=== PATIENT | female | born 1965 | race Caucasian/White ===

== ENCOUNTER 2019-06-20 20:24 | Inpatient (IN) | payer MEDICAID, OTHER ==
[~2019-06-20] VITALS: Ht 170.2 cm; Wt 74.8 kg
[2019-06-20] MEDS ORDERED: PIPERACILLIN SODIUM/TAZOBACTAM 4.5 G in IV DEXTROSE 5% 50 ML IV ONE (21:15)
[2019-06-20] MEDS ORDERED: ACETAMINOPHEN ES 500 MG TABLET PO ONE (21:15)
[2019-06-20] MEDS ORDERED: ONDANSETRON 4 MG/2 ML VIAL IV ONE (21:15)
[2019-06-20] MEDS ORDERED: IV NORMAL SALINE 1000 ML BAG IV ONE (21:15)
[2019-06-20] MEDS ORDERED: MORPHINE SULFATE 2 MG/1 ML DISP.SYRIN IV ONE (21:15)
[2019-06-20] MEDS ORDERED: SWABABLE VALVE TRANSFER SET EA MC ONE (21:20)
[2019-06-20] MEDS ORDERED: ONDANSETRON 4 MG/2 ML VIAL ONE (21:21)
[2019-06-20] MEDS ORDERED: IV NORMAL SALINE 250 ML IV ONE (21:21)
[2019-06-20] MEDS ORDERED: IOHEXOL 300MG/ML 100 ML INFUS..BTL ONE (21:21)
[2019-06-20] MEDS ORDERED: MORPHINE SULFATE 4 MG/1 ML DISP.SYRIN ONE (21:21)
[2019-06-20 21:22] LABS: BASOPHILS # (AUTO) 0.1 K/uL (0.0-8.0); BASOPHILS % (AUTO) 0.9 % (0.0-2.0); EOSINOPHILS # (AUTO) 0.1 K/uL (0.0-0.7); EOSINOPHILS % (AUTO) 0.9 % (0.0-7.0); HEMATOCRIT 42.2 % (31.2-41.9); HEMOGLOBIN 14.1 g/dL (10.9-14.3); LYMPHOCYTES # (AUTO) 2.4 K/uL (20.0-40.0); LYMPHOCYTES % (AUTO) 24.3 % (20.5-51.5); MEAN CORPUSCULAR HEMOGLOBIN 28.6 uug (24.7-32.8); MEAN CORPUSCULAR HGB CONC 33 g/dL (32.3-35.6); MEAN CORPUSCULAR VOLUME 85.7 fL (75.5-95.3); MONOCYTES # (AUTO) 1.1 K/uL (2.0-10.0); MONOCYTES % (AUTO) 11.3 % (0.0-11.0); NEUTROPHILS # (AUTO) 6.1 K/uL (1.8-8.9); NEUTROPHILS % (AUTO) 62.6 % (38.5-71.5); PLATELET COUNT (AUTO) 365 K/uL (179-408); RED BLOOD CELL COUNT(AUTO) 4.92 MIL/uL (3.63-4.92); WHITE BLOOD COUNT (AUTO) 9.7 K/uL (3.8-11.8)
[2019-06-20] MEDS ORDERED: PIPERACILLIN/TAZOBACTAM/D5W 50 ML IV ONE (21:22)
--- NOTE | 2019-06-20 21:30 | NUR ---
TRANSPORTED TO CT [facility] BY LYLY FOLEY VIA [facility]
[2019-06-20 21:41] LABS: CREATININE 0.7 mg/dL (0.6-1.3); POTASSIUM 3.6 mmol/L (3.5-5.1)
[2019-06-20 21:47] LABS: BILIRUBIN,DIRECT 0.2 mg/dL (0.0-0.2); BILIRUBIN,TOTAL 0.7 mg/dL (0.2-1.0); TOTAL PROTEIN, SERUM 7.8 g/dL (6.4-8.2)
--- NOTE | 2019-06-20 22:00 | NUR ---
PT BACK FR CT NAD CURRENTLY REPORTS DECREASE IN PAIN RESTARTED IV FLUIDS STARTED ON IV ABX PIGGYBACK ABLE TO TOLERATE
--- NOTE | 2019-06-20 22:58 | NUR ---
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
--- NOTE | 2019-06-20 23:02 | NUR ---
DR ROBERTSON CALLED BACK DR RAZA CALLED BACK
[2019-06-20] MEDS ORDERED: ACETAMINOPHEN 325 MG TABLET PO PRN (23:15)
[2019-06-20] MEDS ORDERED: MAGNESIUM HYDROXIDE 30 ML LIQUID UDC PO PRN (23:15)
[2019-06-20] MEDS ORDERED: HYDROCODONE/APAP 5-325MG TABLET PO PRN (23:15)
[2019-06-20] MEDS ORDERED: ONDANSETRON 4 MG/2 ML VIAL IV PRN (23:15)
[2019-06-20] MEDS ORDERED: Z GUARD REMEDY PASTE 57 GM TUBE TOP PRN (23:15)
--- NOTE | 2019-06-20 23:20 | NUR ---
ANGEL OWENS CALLED BACK AND RECEIVED HAND OFF AND SBAR
--- NOTE | 2019-06-20 23:50 | NUR ---
TRANSPORTED VIA [facility] BY CLERK RATING (CHARGE)
[2019-06-21 00:30] VITALS: BP 137/77
--- NOTE | 2019-06-21 00:30 | NUR ---
pt arrived in stable condition, sleepy but able to answer questions. Denies pain at this point. skin is intact, belongings charted. Admitting MD notified for admitting orders. Pt resting comfortably
[2019-06-21] MEDS ORDERED: VANCOMYCIN IV 200 ML ONE (02:02)
[2019-06-21] MEDS ORDERED: PIPERACILLIN/TAZOBACTAM/D5W 50 ML IV ONE (02:02)
[2019-06-21] MEDS ORDERED: PIPERACILLIN SODIUM/TAZOBACTAM 3.375 G in IV DEXTROSE 5% 50 ML IV SCH ×3 (06:00)
[2019-06-21 06:26] LABS: BASOPHILS # (AUTO) 0.1 K/uL (0.0-8.0); BASOPHILS % (AUTO) 0.6 % (0.0-2.0); EOSINOPHILS # (AUTO) 0.2 K/uL (0.0-0.7); EOSINOPHILS % (AUTO) 1.7 % (0.0-7.0); HEMATOCRIT 42.9 % (31.2-41.9); HEMOGLOBIN 14.3 g/dL (10.9-14.3); LYMPHOCYTES # (AUTO) 2.7 K/uL (20.0-40.0); LYMPHOCYTES % (AUTO) 30.3 % (20.5-51.5); MEAN CORPUSCULAR HEMOGLOBIN 28.4 uug (24.7-32.8); MEAN CORPUSCULAR HGB CONC 33 g/dL (32.3-35.6); MONOCYTES % (AUTO) 11.9 % (0.0-11.0); NEUTROPHILS # (AUTO) 4.8 K/uL (1.8-8.9); NEUTROPHILS % (AUTO) 55.5 % (38.5-71.5); PLATELET COUNT (AUTO) 381 K/uL (179-408); RED BLOOD CELL COUNT(AUTO) 5.05 MIL/uL (3.63-4.92); WHITE BLOOD COUNT (AUTO) 8.7 K/uL (3.8-11.8)
[2019-06-21] MEDS: IV D5 1/2 NS 1000 ML 1,000 ML IV PRN ×2 (06:33→22:43)
[2019-06-21 06:45] LABS: CREATININE 0.8 mg/dL (0.6-1.3); MAGNESIUM 2.1 mg/dL (1.8-2.4); PHOSPHOROUS 3.7 mg/dL (2.5-4.9)
[2019-06-21 06:53] LABS: THYROID STIMULATING HORMONE 0.526 mIU/mL (0.358-3.740)
[2019-06-21] MEDS: MORPHINE SULFATE 2 MG/1 ML DISP.SYRIN IV PRN ×4 (07:06→21:02)
--- NOTE | 2019-06-21 07:30 | NUR ---
RECEIVED PATIENT IN BED, ASLEEP, EASY TO AWAKE. LEFT AC IV INTACT AND FLUSHED. PATIENT DENIES PAIN AT THIS TIME. LEFT LOWER JAW SWELLING. NPO NOW. SWALLOW EVAL TO BE DONE. SAFETY AND FALL PREVENTION IN PLACE. CALL LIGHT IN REACH. BED IN LOW AND LOCKED POSITION. WILL CONTINUE TO MONITOR.
[2019-06-21] MEDS ORDERED: VANCOMYCIN IV 1,000 MG in IV DEXTROSE 5% 250 ML IV SCH ×3 (07:45)
[2019-06-21] MEDS: PANTOPRAZOLE SODIUM 40 MG VIAL IV SCH (08:17)
[2019-06-21 12:24] VITALS: BP 101/57
--- NOTE | 2019-06-21 13:19 | NUR ---
CLINICAL PHARMACY NOTE:VANCOMYCIN PHARMACY TO DOSE Subjective: To start vancomycin in this 53 y/o female for indication of "suspected infection" Objective: weight 74kg height 170cm BUN/Scr 7/0.8 wbc 8.7 temp 97.9 1gm given in ER 06/21 @~0300 Assessment/Plan Will start regimen of vanco 1250mg q13hr for estimated trough of 16.57, first dose today at 1400. Will check trough before 4th scheduled dose (not ordered yet). Will follow renal function and adjust if needed as well. Will continue to monitor
[2019-06-21] MEDS: VANCOMYCIN IV 1,250 MG in IV DEXTROSE 5% 250 ML IV SCH (13:36)
[2019-06-21] MEDS: PIPERACILLIN/TAZOBACTAM/D5W 3.375 G in IV DEXTROSE 5% 50 ML IV SCH ×2 (14:09→21:02)
[2019-06-21 15:28] VITALS: BP 116/71
--- NOTE | 2019-06-21 19:20 | NUR ---
PATIENT IN BED,AOX4. LEFT AC AND RIGHT FA IV INTACT AND FLUSHED. PAIN MEDICATIONS GIVEN ORDERED. LEFT LOWER JAW SWELLING. PATIENT TOLERATING ORAL FOOD. SAFETY AND FALL PREVENTION IN PLACE. CALL LIGHT IN REACH. BED IN LOW AND LOCKED POSITION.
[2019-06-21 20:11] VITALS: BP 109/65
[2019-06-21] MEDS: NICOTINE 21 MG/24HR PATCH TD SCH (20:27)
[2019-06-22 00:11] VITALS: BP 94/39
[2019-06-22 01:00] VITALS: BP 116/71
[2019-06-22] MEDS: MORPHINE SULFATE 2 MG/1 ML DISP.SYRIN IV PRN ×5 (01:00→21:08)
[2019-06-22] MEDS: VANCOMYCIN IV 1,250 MG in IV DEXTROSE 5% 250 ML IV SCH ×2 (02:21→16:21)
[2019-06-22 04:00] VITALS: BP 121/58
[2019-06-22] MEDS: PIPERACILLIN/TAZOBACTAM/D5W 3.375 G in IV DEXTROSE 5% 50 ML IV SCH ×3 (05:21→22:18)
[2019-06-22 06:20] LABS: BASOPHILS % (AUTO) 0.9 % (0.0-2.0); EOSINOPHILS # (AUTO) 0.1 K/uL (0.0-0.7); EOSINOPHILS % (AUTO) 2.9 % (0.0-7.0); HEMATOCRIT 35.5 % (31.2-41.9); HEMOGLOBIN 11.6 g/dL (10.9-14.3); LYMPHOCYTES # (AUTO) 1.7 K/uL (20.0-40.0); LYMPHOCYTES % (AUTO) 34.3 % (20.5-51.5); MEAN CORPUSCULAR HEMOGLOBIN 28.8 uug (24.7-32.8); MEAN CORPUSCULAR HGB CONC 33 g/dL (32.3-35.6); MEAN CORPUSCULAR VOLUME 88.6 fL (75.5-95.3); MONOCYTES # (AUTO) 0.6 K/uL (2.0-10.0); MONOCYTES % (AUTO) 11.9 % (0.0-11.0); NEUTROPHILS # (AUTO) 2.4 K/uL (1.8-8.9); PLATELET COUNT (AUTO) 283 K/uL (179-408); RED BLOOD CELL COUNT(AUTO) 4.01 MIL/uL (3.63-4.92); WHITE BLOOD COUNT (AUTO) 4.8 K/uL (3.8-11.8)
[2019-06-22 06:42] LABS: CREATININE 0.8 mg/dL (0.6-1.3); MAGNESIUM 1.8 mg/dL (1.8-2.4); PHOSPHOROUS 3.1 mg/dL (2.5-4.9); POTASSIUM 3.3 mmol/L (3.5-5.1)
--- NOTE | 2019-06-22 07:24 | NUR ---
patient rested well in between care; tolerated antibiotics; c/o pain medicated accdgly see Emar; BMP sugar 500+ and K 3.3; Dr Porras made aware and with new orders; endorsed to Nurse Beckford for further management.
[2019-06-22] MEDS ORDERED: DEXTROSE 50% 50 ML DISP.SYRIN IV PRN (07:30)
[2019-06-22] MEDS ORDERED: INSULIN REGULAR, HUMAN 300 UNITS/3 ML VIAL SQ PRN (07:30)
[2019-06-22] MEDS ORDERED: INSULIN REGULAR, HUMAN 300 UNIT/3 ML VIAL SQ PRN (07:30)
--- NOTE | 2019-06-22 07:39 | NUR ---
RECEIVED PATIENT IN BED,AOX4. LEFT AC AND RIGHT FA IV INTACT AND FLUSHED. IV FLUIDS STOPED ORDERED. ACCU CHECK DONE WITH BS OF 94. LEFT LOWER JAW SWELLING. PATIENT DENIES PAIN AT THIS TIME. SAFETY AND FALL PREVENTION IN PLACE. CALL LIGHT IN REACH. BED IN LOW AND LOCKED POSITION. WILL CONTINUE TO MONITOR.
[2019-06-22] MEDS: BLOOD SUGAR DIAGNOSTIC 1 EACH STRIP VI SCH ×4 (07:45→21:19)
[2019-06-22] MEDS ORDERED: POTASSIUM CHLORIDE 20 MEQ TAB.PRT.SR PO ONE (08:00)
[2019-06-22] MEDS: PANTOPRAZOLE SODIUM 40 MG VIAL IV SCH (08:04)
[2019-06-22 11:30] VITALS: BP 105/44
[2019-06-22 16:00] VITALS: BP 122/59
--- NOTE | 2019-06-22 18:19 | NUR ---
PATIENT IN BED,AOX4. LEFT AC AND RIGHT FA IV INTACT AND FLUSHED. IV ABX GIVEN ORDERED. LEFT LOWER JAW SWELLING. PATIENT CONTINUES WITH PAIN MANAGEMENT THROUGHOUT THE SHIFT ORDERED. SAFETY AND FALL PREVENTION IN PLACE. CALL LIGHT IN REACH. BED IN LOW AND LOCKED POSITION. WILL REPORT TO ONCOMING NURSE.
[2019-06-22 20:00] VITALS: BP 113/62
--- NOTE | 2019-06-22 20:00 | NUR ---
Patient received into care laying in bed resting comfortably and easy to rouse when name spoken. Patient is complaining of jaw pain and is requesting her nicotine patch. All safety and fall precaution measures are in place. Call light and personal items are within reach. Will continue to monitor and assess.
[2019-06-22] MEDS: NICOTINE 21 MG/24HR PATCH TD SCH (20:04)
[2019-06-23] VITALS: BP 120/66
[2019-06-23 04:00] VITALS: BP 116/55
[2019-06-23 05:11] LABS: BASOPHILS # (AUTO) 0.1 K/uL (0.0-8.0); BASOPHILS % (AUTO) 0.7 % (0.0-2.0); EOSINOPHILS # (AUTO) 0.2 K/uL (0.0-0.7); EOSINOPHILS % (AUTO) 2.5 % (0.0-7.0); HEMATOCRIT 41.7 % (31.2-41.9); HEMOGLOBIN 13.9 g/dL (10.9-14.3); LYMPHOCYTES # (AUTO) 1.7 K/uL (20.0-40.0); LYMPHOCYTES % (AUTO) 20.5 % (20.5-51.5); MEAN CORPUSCULAR HEMOGLOBIN 28.6 uug (24.7-32.8); MEAN CORPUSCULAR HGB CONC 34 g/dL (32.3-35.6); MEAN CORPUSCULAR VOLUME 85.5 fL (75.5-95.3); MONOCYTES # (AUTO) 0.9 K/uL (2.0-10.0); MONOCYTES % (AUTO) 10.6 % (0.0-11.0); NEUTROPHILS # (AUTO) 5.3 K/uL (1.8-8.9); NEUTROPHILS % (AUTO) 65.7 % (38.5-71.5); PLATELET COUNT (AUTO) 390 K/uL (179-408); RED BLOOD CELL COUNT(AUTO) 4.88 MIL/uL (3.63-4.92); WHITE BLOOD COUNT (AUTO) 8.1 K/uL (3.8-11.8)
[2019-06-23 05:22] LABS: CREATININE 0.8 mg/dL (0.6-1.3); MAGNESIUM 2.1 mg/dL (1.8-2.4); PHOSPHOROUS 3.7 mg/dL (2.5-4.9); POTASSIUM 3.8 mmol/L (3.5-5.1)
[2019-06-23] MEDS: VANCOMYCIN IV 1,250 MG in IV DEXTROSE 5% 250 ML IV SCH (06:07)
[2019-06-23] MEDS: MORPHINE SULFATE 2 MG/1 ML DISP.SYRIN IV PRN ×2 (06:34→11:22)
[2019-06-23] MEDS: BLOOD SUGAR DIAGNOSTIC 1 EACH STRIP VI SCH ×2 (06:41→11:26)
[2019-06-23] MEDS ORDERED: PANTOPRAZOLE SODIUM 40 MG TABLET.DR PO SCH (07:00)
[2019-06-23] MEDS: PIPERACILLIN/TAZOBACTAM/D5W 3.375 G in IV DEXTROSE 5% 50 ML IV SCH (08:52)
--- NOTE | 2019-06-23 10:16 | NUR ---
CLINICAL PHARMACY NOTE:VANCOMYCIN PHARMACY TO DOSE Subjective: To continue vancomycin in this 53 y/o female for indication of "suspected infection ". Per ID note for Facial cellulitis Objective: weight 74kg height 170cm BUN/Scr 9/0.8 wbc 8.1 temp 97.1 Vanco trough level on 06/23 at 0430: 13.3 Assessment/Plan Since vanco trough level is 13.3, will change dose to vanco 1250mg q12hr for estimated trough of 15mcg/ml. 2nd dose today at 1800. Will check trough before 4th scheduled dose (not ordered yet). Will follow renal function and adjust if needed as well. Will continue to monitor
[2019-06-23 11:54] VITALS: BP 122/66
[2019-06-23] MEDS ORDERED: PIPERACILLIN/TAZOBACTAM/D5W 3.375 G in IV DEXTROSE 5% 50 ML IV SCH (15:00)
[2019-06-23 15:21] VITALS: BP 133/79
[2019-06-23] MEDS ORDERED: HYDR-3972 PO (15:45)
[2019-06-23] MEDS ORDERED: ONDA4TAB11 PO (15:45)
[2019-06-23] MEDS ORDERED: AMOX-430 PO (15:45)
--- NOTE | 2019-06-23 16:14 | NUR ---
[id number] Discharge instructions reviewed with patient at bedside, questions and concerns addressed. PAtient instructed to follow up with dentist and a primary care doctor. Medications reviewed with patient at bedside, electronically sent by for pickup. Patient verbalized understanding. IV access removed. PAtient ambulatory, stable at time of discharge.
[2019-06-23] MEDS ORDERED: VANCOMYCIN IV 1,250 MG in IV DEXTROSE 5% 250 ML IV SCH (18:00)
== END 2019-06-23 16:15 | disposition home or self-care (01) | DRG 383 ==
LOC: ER 20:26 → TELE3 23:44 → MEDSURG3 06-23 08:43
PROVIDERS: ADMIT Student in an Organized Health Care Education/Training Program; ATTEND Student in an Organized Health Care Education/Training Program
DX: L03.211 Cellulitis of face (principal); E87.1 Hypo-osmolality and hyponatremia; R59.0 Localized enlarged lymph nodes; S02.5XXA Fracture of tooth (traumatic), initial encounter for closed fracture; X58.XXXA Exposure to other specified factors, initial encounter; Y92.89 Other specified places as the place of occurrence of the external cause; F17.210 Nicotine dependence, cigarettes, uncomplicated; R22.1 Localized swelling, mass and lump, neck; E87.6 Hypokalemia
CPT/HCPCS: 36415; 70487; 83605; 83735; 84100; 84443; 85025; 87040; 87806; A4663; A9150; C9113; G0378; J1815; J2270; J2405; J2543; J3370; J3490; J7030; J7050; J7060; Q9967

== ENCOUNTER 2019-08-09 08:25 | Emergency (ER) | payer MEDICAID ==
[~2019-08-09] VITALS: Ht 165.1 cm; Wt 72.6 kg
[2019-08-09] MEDS ORDERED: MECLIZINE HCL 25 MG TABLET PO ONE (09:00)
[2019-08-09] MEDS ORDERED: ACETAMINOPHEN 325 MG TABLET PO ONE (09:00)
[2019-08-09] MEDS ORDERED: MECLIZINE HCL 25 MG TABLET ONE (09:04)
[2019-08-09] MEDS ORDERED: ACETAMINOPHEN 325 MG TABLET ONE (09:04)
[2019-08-09 09:17] LABS: POTASSIUM 3.6 mmol/L (3.5-5.1)
[2019-08-09 09:22] LABS: BASOPHILS % (AUTO) 0.7 % (0.0-2.0); EOSINOPHILS % (AUTO) 0.5 % (0.0-7.0); HEMOGLOBIN 13.5 g/dL (10.9-14.3); LYMPHOCYTES # (AUTO) 0.8 K/uL (20.0-40.0); LYMPHOCYTES % (AUTO) 14.8 % (20.5-51.5); MEAN CORPUSCULAR HGB CONC 34 g/dL (32.3-35.6); MEAN CORPUSCULAR VOLUME 82.7 fL (75.5-95.3); MONOCYTES # (AUTO) 0.9 K/uL (2.0-10.0); MONOCYTES % (AUTO) 15.8 % (0.0-11.0); NEUTROPHILS # (AUTO) 3.8 K/uL (1.8-8.9); NEUTROPHILS % (AUTO) 68.2 % (38.5-71.5); PLATELET COUNT (AUTO) 363 K/uL (179-408); RED BLOOD CELL COUNT(AUTO) 4.84 MIL/uL (3.63-4.92); WHITE BLOOD COUNT (AUTO) 5.6 K/uL (3.8-11.8)
[2019-08-09 09:47] LABS: LYMPHOCYTES % (MANUAL) 21 % (20-40); MONOCYTES % (MANUAL) 14 % (2-10); NEUTROPHILS % (MANUAL) 65 % (42-75)
--- NOTE | 2019-08-09 10:06 | NUR ---
PATIENT WAS SEEN BY MD. TESTS COMPLETE. DC, RX AND FOLLOW UP INSTRUCTIONS GIVEN AND EXPLAINED TO PATIENT WHO STATES SHE UNDERSTANDS ALL INSTRUCTIONS.
== END 2019-08-09 10:11 | disposition home or self-care (01) ==
LOC: ER 08:25
DX: R42 Dizziness and giddiness (principal); R51 Headache; J40 Bronchitis, not specified as acute or chronic; F17.290 Nicotine dependence, other tobacco product, uncomplicated; R68.84 Jaw pain; Z79.899 Other long term (current) drug therapy
CPT/HCPCS: 36415; 70030-TC; 71045; 85025; 93005; A4663; J8597

== ENCOUNTER 2023-07-22 18:55 | Emergency (ER) | payer MEDICAID, OTHER ==
[~2023-07-22] VITALS: Ht 167.6 cm; Wt 81.6 kg
[~2023-07-22 18:55] MED LIST: AMOX-430 PO; HYDR-3972 PO; ONDA4TAB11 PO
[2023-07-22] MEDS ORDERED: CEFTRIAXONE /D5W 50ML IVPB **ER PYXIS IV ONE (20:05)
[2023-07-22 20:07] LABS: BASOPHILS # (AUTO) 0.1 K/UL (0.0-0.2); BASOPHILS % (AUTO) 0.8 % (0.0-2.0); EOSINOPHILS # (AUTO) 0.1 K/uL (0.0-0.7); EOSINOPHILS % (AUTO) 1.9 % (0.0-7.0); HEMATOCRIT 46.1 % (31.2-41.9); HEMOGLOBIN 15.4 g/dL (10.9-14.3); LYMPHOCYTES # (AUTO) 2.1 K/uL (0.8-4.8); MEAN CORPUSCULAR HEMOGLOBIN 29.4 uug (24.7-32.8); MEAN CORPUSCULAR HGB CONC 33 g/dL (32.3-35.6); MEAN CORPUSCULAR VOLUME 88.2 fL (75.5-95.3); MONOCYTES # (AUTO) 0.8 K/uL (0.1-1.30); MONOCYTES % (AUTO) 10.5 % (0.0-11.0); NEUTROPHILS # (AUTO) 4.2 K/uL (1.8-8.9); NEUTROPHILS % (AUTO) 57.8 % (38.5-71.5); PLATELET COUNT (AUTO) 350 K/uL (179-408); RED BLOOD CELL COUNT(AUTO) 5.23 MIL/uL (3.63-4.92); RED CELL DISTRIBUTION WIDTH 14.5 % (12.3-17.7); WHITE BLOOD COUNT (AUTO) 7.2 K/uL (3.8-11.8)
[2023-07-22] MEDS: CEFTRIAXONE 1 G in IV DEXTROSE 5% 50 ML IV ONE (20:09)
[2023-07-22 20:13] LABS: DIFFERENTIAL COMMENT 1
[2023-07-22 20:15] LABS: CREATININE 0.9 mg/dL (0.6-1.3); POTASSIUM 4.1 mmol/L (3.5-5.1)
[2023-07-22 20:20] LABS: ALBUMIN 3.5 g/dL (3.4-5.0); BILIRUBIN,TOTAL 0.4 mg/dL (0.2-1.0); TOTAL PROTEIN, SERUM 7.7 g/dL (6.4-8.2)
[2023-07-22] MEDS ORDERED: SWABABLE VALVE TRANSFER SET EA MC ONE (20:28)
[2023-07-22] MEDS ORDERED: IOHEXOL 300MG/ML 100 ML INFUS..BTL ONE (20:28)
[2023-07-22] MEDS ORDERED: IV NORMAL SALINE 250 ML IV ONE (20:30)
[2023-07-22 21:07] LABS: *BILIRUBIN,URIN NEGATIVE (NEGATIVE); *BLOOD, URINE NEGATIVE (NEGATIVE); *CLARITY,URINE CLEAR (CLEAR); *COLOR,URINE YELLOW (YELLOW); *KETONES,URINE NEGATIVE (NEGATIVE); *PROTEIN,URINE NEGATIVE (NEGATIVE); *UROBILINOGEN,URINE 0.2 E.U./dl (NORMAL); LEUKOCYTE ESTERASE ,URINE NEGATIVE (NEGATIVE); NITRITE, URINE NEGATIVE (NEGATIVE); UGLUCOSE NEGATIVE (NEGATIVE)
[2023-07-22] MEDS ORDERED: CLIN-118 PO (21:21)
[2023-07-22 21:30] LABS: *AMPHETAMINE, URINE POSITIVE (NEGATIVE); *BARBITURATE, URINE NEGATIVE (NEGATIVE); *BENZODIAZEPINE, URINE NEGATIVE (NEGATIVE); *CANNABINOID, URINE POSITIVE (NEGATIVE); *COCCAINE, URINE NEGATIVE (NEGATIVE); *OPIATE, URINE NEGATIVE (NEGATIVE); *PHENCYCLIDINE SCREEN,URINE NEGATIVE (NEGATIVE); FENTANYL, URINE NEGATIVE (NEGATIVE)
[2023-07-22 21:34] VITALS: BP 145/90; TEMP 98.5; O2SAT 100
== END 2023-07-22 21:35 | disposition home or self-care (01) ==
LOC: ER 19:02
DX: H00.031 Abscess of right upper eyelid (principal); F17.200 Nicotine dependence, unspecified, uncomplicated; Z79.899 Other long term (current) drug therapy; Z98.890 Other specified postprocedural states
CPT/HCPCS: 36415; 71045; 83605; 85025; 87040; A4606; A4663; J0696; Q9967